=== PATIENT | female | born 1940 | race Caucasian/White ===

== ENCOUNTER 2025-02-08 12:08 | Inpatient (IN) | payer MEDICARE, MEDICAID ==
[~2025-02-08] VITALS: Ht 165.1 cm; Wt 49.9 kg
[2025-02-08 13:03] LABS: BASOPHILS # (AUTO) 0.1 K/uL (0.0-0.2); BASOPHILS % (AUTO) 0.9 % (0.0-2.0); EOSINOPHILS # (AUTO) 0.1 K/uL (0.0-0.7); EOSINOPHILS % (AUTO) 0.9 % (0.0-6.0); HEMATOCRIT 32 % (33-45); HEMOGLOBIN 10.4 g/dL (11.5-14.8); LYMPHOCYTES # (AUTO) 2.3 K/uL (0.8-4.8); LYMPHOCYTES % (AUTO) 20.8 % (20.0-44.0); MEAN CORPUSCULAR HEMOGLOBIN 21 PG (26.0-33.0); MEAN CORPUSCULAR HGB CONC 32 g/dl (31.0-36.0); MEAN CORPUSCULAR VOLUME 64 fL (82-100); MONOCYTES # (AUTO) 0.8 K/uL (0.1-1.30); MONOCYTES % (AUTO) 7.3 % (2.0-12.0); NEUTROPHILS # (AUTO) 7.7 K/uL (1.8-8.9); NEUTROPHILS % (AUTO) 70.1 % (43.0-81.0); PLATELET COUNT (AUTO) 211 K/uL (150-450); RED BLOOD CELL COUNT(AUTO) 5.04 MIL/uL (4.0-5.2); RED CELL DISTRIBUTION WIDTH 17.5 % (11.5-15.0); WHITE BLOOD COUNT (AUTO) 10.9 K/uL (4.3-11.0)
[2025-02-08 13:10] LABS: CALCIUM, SERUM 9.5 mg/dL (8.5-10.1); CARBON DIOXIDE 26 mmol/L (21-32); CHLORIDE 104 mmol/L (98-107); CREATININE 0.6 mg/dL (0.6-1.3); GLUCOSE 108 mg/dL (74-106); POTASSIUM 4.4 mmol/L (3.5-5.1); SODIUM SERUM 136 mmol/L (136-145); UREA NITROGEN, BLOOD 17 mg/dL (7-18)
[2025-02-08 13:15] LABS: APPEARANCE,URINE CLOUDY (CLEAR); BILIRUBIN,URINE NEGATIVE (NEGATIVE); BLOOD, URINE TRACE-INTA Ery/uL (NEGATIVE); COLOR,URINE YELLOW (YELLOW); KETONES,URINE NEGATIVE (NEGATIVE); LEUKOCYTE ESTERASE ,URINE 2+ (NEGATIVE); NITRITE, URINE POSITIVE (NEGATIVE); PROTEIN,URINE NEGATIVE (NEGATIVE); UGLUCOSE NEGATIVE (NEGATIVE); UROBILINOGEN,URINE 0.2 EU/dL (0.2)
[2025-02-08 13:16] LABS: ALANINE AMINOTRANSFERASE 15 U/L (12-78); ALBUMIN 3.5 g/dL (3.4-5.0); ALCOHOL, BLOOD < 3 mg/dL (0-10); ALKALINE PHOSPHATASE 100 U/L (46-116); ASPARTATE AMINOTRANSFERASE 24 U/L (15-37); BILIRUBIN,DIRECT 0.2 mg/dL (0.0-0.2); BILIRUBIN,TOTAL 0.5 mg/dL (0.2-1.0); TOTAL PROTEIN, SERUM 7.6 g/dL (6.4-8.2)
[2025-02-08 13:30] LABS: AMPHETAMINE, URINE NEGATIVE (NEGATIVE); BARBITURATE, URINE NEGATIVE (NEGATIVE); BENZODIAZEPINE, URINE NEGATIVE (NEGATIVE); CANNABINOID, URINE NEGATIVE (NEGATIVE); COCCAINE, URINE NEGATIVE (NEGATIVE); OPIATE, URINE NEGATIVE (NEGATIVE); PHENCYCLIDINE SCREEN,URINE NEGATIVE (NEGATIVE)
[2025-02-08 13:33] LABS: ACETAMINOPHEN <10 ug/ml (10-30); SALICYLATE 1.8 mg/dL (2.8-20.0)
[2025-02-08] MEDS ORDERED: DICL100G26 TP (14:00)
[2025-02-08] MEDS ORDERED: MAGN400O6 PO (14:00)
[2025-02-08] MEDS ORDERED: VITA1TAB37 PO (14:00)
[2025-02-08] MEDS ORDERED: CARB15DR EACHEYE (14:00)
[2025-02-08] MEDS ORDERED: OXCA150T5 PO (14:00)
[2025-02-08] MEDS ORDERED: MAG30ORA PO (14:00)
[2025-02-08] MEDS ORDERED: LORA10TA7 PO (14:00)
[2025-02-08] MEDS ORDERED: MELA5TAB PO (14:00)
[2025-02-08] MEDS ORDERED: BUME0.5T5 PO (14:00)
[2025-02-08] MEDS ORDERED: DOCU100T2 PO (14:00)
[2025-02-08] MEDS ORDERED: FERR325T23 PO (14:00)
[2025-02-08] MEDS ORDERED: ACET-868 PO (14:00)
[2025-02-08] MEDS ORDERED: ATOR40TA PO (14:00)
[2025-02-08] MEDS ORDERED: METO100T14 PO (14:00)
[2025-02-08] MEDS ORDERED: NA P133E RC (14:00)
[2025-02-08] MEDS ORDERED: LOSA100T31 PO (14:00)
[2025-02-08] MEDS ORDERED: BISA10SU11 RC (14:00)
[2025-02-08] MEDS ORDERED: ARIP5TAB10 PO (14:00)
[2025-02-08] MEDS ORDERED: ASPI-1169 PO (14:00)
[2025-02-08] MEDS ORDERED: POTA10CA43 PO (14:00)
[2025-02-08] MEDS ORDERED: CHOL200059 PO (14:00)
[2025-02-08] MEDS ORDERED: GABA-532 PO (14:00)
[2025-02-08] MEDS ORDERED: TYL2T PO (14:00)
[2025-02-08 14:10] LABS: ADD URINE CULTURE YES; BACTERIA,URINE Many /HPF (None Seen); RBC,URINE 0-2 /HPF (0-2); WBC,URINE 51-80 /HPF (0-3)
[2025-02-08 14:11] LABS: SQUAMOUS EPITHELIAL CELL,UR 0-2 /HPF (None Seen)
[2025-02-08] MEDS: NITROFURANTOIN/MONOHYDRATE MACROCRYSTALS 100 MG CAPSULE PO ONE (14:51)
[2025-02-08 15:50] VITALS: BP 152/77; TEMP 98.1; O2SAT 93
[2025-02-08 18:00] VITALS: BP 152/77; TEMP 98.1; O2SAT 93
[2025-02-08] MEDS ORDERED: MAGNESIUM HYDROXIDE 30 ML UDC PO PRN (18:00)
[2025-02-08] MEDS ORDERED: MAG HYDROX/AL HYDROX/SIMETH 30 ML UDC PO PRN (18:00)
[2025-02-08] MEDS ORDERED: ACETAMINOPHEN 325 MG TABLET PO PRN (18:00)
[2025-02-08 18:04] LABS: LYMPHOCYTES % (MANUAL) 24 % (16-48); MONOCYTES % (MANUAL) 7 % (0-11.0); NEUTROPHILS % (MANUAL) 69 (42-76)
[2025-02-08 18:05] LABS: ANISOCYTOSIS 1+; PLATELET ESTIMATE ADEQUATE
[2025-02-08] MEDS: METOPROLOL TARTRATE 50 MG TABLET PO SCH (18:05)
[2025-02-08] MEDS: BLOOD SUGAR DIAGNOSTIC 1 EACH STRIP IN ONE (18:05)
[2025-02-08 18:07] LABS: OVALOCYTES FEW
[2025-02-08 18:08] LABS: TARGET CELLS FEW
[2025-02-08] MEDS ORDERED: ZOLPIDEM TARTRATE 5 MG TABLET PO PRN ×2 (20:00)
[2025-02-08 20:13] VITALS: BP 122/79; TEMP 98; O2SAT 97
[2025-02-08 21:11] VITALS: BP 154/65; TEMP 98; O2SAT 98
[2025-02-08] MEDS: NITROFURANTOIN/MONOHYDRATE MACROCRYSTALS 100 MG CAPSULE PO SCH (21:29)
[2025-02-08] MEDS: GABAPENTIN 100 MG CAPSULE PO SCH (22:06)
[2025-02-08] MEDS: ATORVASTATIN 40 MG TABLET PO SCH (22:06)
[2025-02-08] MEDS: LORATADINE 10 MG TABLET PO SCH (22:06)
[2025-02-09 08:00] VITALS: BP 138/76; TEMP 97.9; O2SAT 97
[2025-02-09] MEDS: CARBOXYMETHYLCELLULOSE SODIUM 1 EA TUBE EACHEYE SCH (08:33)
[2025-02-09] MEDS: LOSARTAN POTASSIUM 50 MG TABLET PO SCH (08:34)
[2025-02-09] MEDS: VITAMIN B COMP W-C 1 TAB TABLET PO SCH (08:34)
[2025-02-09] MEDS: FERROUS SULFATE (325 MG) 325 MG/TAB TABLET PO SCH (08:34)
[2025-02-09] MEDS: ASCORBIC ACID 500 MG TABLET PO SCH (08:34)
[2025-02-09] MEDS: BUMETANIDE (1 MG) 1 MG TABLET PO SCH (08:34)
[2025-02-09] MEDS: ASPIRIN 81 MG TAB.CHEW PO SCH (08:34)
[2025-02-09] MEDS: POTASSIUM CHLORIDE 10 MEQ TABLET.SA PO SCH (08:34)
[2025-02-09] MEDS: Z GUARD REMEDY 4 OZ OINT TP SCH (08:35)
[2025-02-09] MEDS: LORAZEPAM 0.5 MG TABLET PO ONE (10:58)
[2025-02-09 13:26] LABS: CREATININE 0.7 mg/dL (0.6-1.3)
[2025-02-09 13:29] LABS: ALBUMIN 3.6 g/dL (3.4-5.0); BILIRUBIN,TOTAL 0.7 mg/dL (0.2-1.0); CALCIUM, SERUM 9.2 mg/dL (8.5-10.1); CREATININE 0.7 mg/dL (0.6-1.3); POTASSIUM 3.5 mmol/L (3.5-5.1); TOTAL PROTEIN, SERUM 7.7 g/dL (6.4-8.2)
[2025-02-09 16:00] VITALS: BP 100/60; TEMP 97.7; O2SAT 97
[2025-02-09] MEDS: OXCARBAZEPINE 150 MG TABLET PO SCH (17:51)
[2025-02-09 20:33] VITALS: BP 139/68; TEMP 97.9; O2SAT 99
[2025-02-09] MEDS: ARIPIPRAZOLE 5 MG TABLET PO SCH (22:00)
[2025-02-10 08:00] VITALS: BP 154/57; TEMP 97.6; O2SAT 98
[2025-02-10 15:55] VITALS: BP 103/81; TEMP 99; O2SAT 97
[2025-02-10 20:22] VITALS: BP 95/79; TEMP 98.1; O2SAT 95
[2025-02-11 08:00] VITALS: BP 125/69; TEMP 98.7; O2SAT 98
[2025-02-11 15:57] VITALS: BP 111/86; TEMP 97.8; O2SAT 97
[2025-02-11 20:02] VITALS: BP 119/88; TEMP 97.9; O2SAT 97
[2025-02-12 08:00] VITALS: BP 110/66; TEMP 97.8; O2SAT 98
[2025-02-12] MEDS: OXCARBAZEPINE 150 MG TABLET PO SCH (09:19)
[2025-02-12 16:00] VITALS: BP 100/61; TEMP 98.2; O2SAT 99
[2025-02-12 20:17] VITALS: BP 132/58; TEMP 98.5; O2SAT 97
[2025-02-12] MEDS: QUETIAPINE FUMARATE 25 MG TABLET PO SCH (21:11)
[2025-02-13 08:00] VITALS: BP 127/64; TEMP 97.8; O2SAT 98
[2025-02-13] MEDS: OXCARBAZEPINE 150 MG TABLET PO SCH (12:56)
[2025-02-13 16:00] VITALS: BP 131/59; TEMP 97.9; O2SAT 98
[2025-02-13 20:38] VITALS: BP 113/67; TEMP 97.7; O2SAT 96
[2025-02-14 08:00] VITALS: BP 137/100; TEMP 98; O2SAT 96
[2025-02-14 16:00] VITALS: BP 99/60; TEMP 97.5; O2SAT 98
[2025-02-14 20:00] VITALS: BP 93/50; TEMP 97.8; O2SAT 98
[2025-02-14 22:00] VITALS: BP 121/59
[2025-02-15 08:00] VITALS: BP 99/68; TEMP 97.5; O2SAT 96
[2025-02-15 16:00] VITALS: BP 146/80; TEMP 97.8; O2SAT 96
[2025-02-15] MEDS: QUETIAPINE FUMARATE 25 MG TABLET PO SCH (20:21)
[2025-02-15 21:12] VITALS: BP 106/86; TEMP 97.9; O2SAT 97
[2025-02-16 08:00] VITALS: BP 93/76; TEMP 97.8; O2SAT 97
[2025-02-16] MEDS: QUETIAPINE FUMARATE 25 MG TABLET PO SCH (09:15)
[2025-02-16 16:00] VITALS: BP 155/59; TEMP 98; O2SAT 96
[2025-02-16 20:56] VITALS: BP 122/64; TEMP 98; O2SAT 96
[2025-02-17 08:00] VITALS: BP 101/87; TEMP 97.8; O2SAT 97
[2025-02-17 16:47] VITALS: BP 101/61; TEMP 98.6; O2SAT 96
[2025-02-17 20:20] VITALS: BP 120/66; TEMP 98.6; O2SAT 96
[2025-02-17] MEDS: Z GUARD REMEDY 4 OZ OINT TP SCH (20:27)
[2025-02-18 08:00] VITALS: BP 100/57; TEMP 98.1; O2SAT 98
[2025-02-18 16:00] VITALS: BP 100/77; TEMP 97.9; O2SAT 98
[2025-02-18 20:03] VITALS: BP 112/89; TEMP 98.1; O2SAT 96
[2025-02-19 08:00] VITALS: BP 107/88; TEMP 97.8; O2SAT 99
[2025-02-19 16:00] VITALS: BP 109/60; TEMP 97.8; O2SAT 97
[2025-02-19 20:19] VITALS: BP 106/72; TEMP 98.4; O2SAT 97
[2025-02-19] MEDS: OXCARBAZEPINE 150 MG TABLET PO SCH (21:23)
[2025-02-20 08:00] VITALS: BP 110/55; TEMP 97.9; O2SAT 96
[2025-02-20] MEDS: OXCARBAZEPINE 150 MG TABLET PO SCH (08:30)
[2025-02-20 16:00] VITALS: BP 100/58; TEMP 98.1; O2SAT 98
[2025-02-20 19:57] VITALS: BP 138/97; TEMP 98.2; O2SAT 95
[2025-02-21 08:00] VITALS: BP 115/66; TEMP 98; O2SAT 94
[2025-02-21 16:00] VITALS: BP 90/50; TEMP 98.7; O2SAT 94
[2025-02-22 08:52] VITALS: BP 114/73; TEMP 97.6; O2SAT 100
== END 2025-02-22 13:00 | DRG 885 ==
LOC: ER 12:18 → GPS 16:31
PROVIDERS: ADMIT Psychiatry & Neurology Psychosomatic Medicine; ATTEND Nurse Practitioner Family
DX: F29 Unspecified psychosis not due to a substance or known physiological condition (principal); F02.83 Dementia in other diseases classified elsewhere, unspecified severity, with mood disturbance; N39.0 Urinary tract infection, site not specified; Z16.12 Extended spectrum beta lactamase (ESBL) resistance; F02.82 Dementia in other diseases classified elsewhere, unspecified severity, with psychotic disturbance; F02.84 Dementia in other diseases classified elsewhere, unspecified severity, with anxiety; F39 Unspecified mood [affective] disorder; G30.9 Alzheimer's disease, unspecified; K21.9 Gastro-esophageal reflux disease without esophagitis; D50.9 Iron deficiency anemia, unspecified; F32.A Depression, unspecified; G62.9 Polyneuropathy, unspecified; G89.29 Other chronic pain; I10 Essential (primary) hypertension; I25.10 Atherosclerotic heart disease of native coronary artery without angina pectoris; M19.90 Unspecified osteoarthritis, unspecified site; Z86.73 Personal history of transient ischemic attack (TIA), and cerebral infarction without residual deficits; Z88.0 Allergy status to penicillin; Z20.822 Contact with and (suspected) exposure to COVID-19; B96.20 Unspecified Escherichia coli [E. coli] as the cause of diseases classified elsewhere; Z73.6 Limitation of activities due to disability; I73.9 Peripheral vascular disease, unspecified; F41.9 Anxiety disorder, unspecified
CPT/HCPCS: 36415; 70450-TC; 80048-TC; 80053-TC; 80061-TC; 80076-TC; 81001; 82565-TC; 82607-TC; 82728-TC; 82962-TC; 83540-TC; 84439-TC; 84443-TC; 85025-TC; 87081-TC; 87086-TC; 87186-TC; 97110-TC; 97530-TC; G0480